=== PATIENT | female | born 1945 | race Caucasian/White ===

== ENCOUNTER → 2019-05-25 | Outpatient (CLI) | payer BC, MEDICARE ==
--- NOTE | 2019-05-25 15:07 | REPPI ---
KUB: Two views. Tree: Kidney stone. No comparison imaging. Findings: There is an irregularly shaped 7 mm calcification projecting in the left upper quadrant of the abdomen over the upper pole left kidney consistent with intrarenal nephrolithiasis. There may be a smaller calcification adjacent. There is an anastomotic suture line visible in the right lower pelvis. There is a dextroconvex curvature in the lumbar spine. Impression: 7 mm calculus projects over the left kidney consistent with intrarenal nephrolithiasis. Electronically Signed by Alfredo Rabago MD 05/25/2019 02:58 P
== END ==
LOC: M PLAIMG 13:41
PROVIDERS: ATTEND Nurse Practitioner Women's Health
DX: N20.0 Calculus of kidney (principal)

== ENCOUNTER → 2019-05-25 | Outpatient (REF) | payer BC ==
[2019-05-25 19:52] LABS: APPEARANCE, URINE CLOUDY (CLEAR); BACTERIA, URINE AUTO NEGATIVE (NEGATIVE); BILIRUBIN, URINE AUTO NEGATIVE (NEGATIVE); BLOOD, URINE BLOOD 3+ (NEGATIVE); COLOR, URINE YELLOW (YELLOW); GLUCOSE, URINE (UA) AUTO 1+ mg/dL (NEGATIVE); KETONE, URINE AUTO NEGATIVE (NEGATIVE); LEUKOCYTE ESTERASE, URINE AUTO NEGATIVE (NEGATIVE); MUCUS, URINE SMALL (NEGATIVE); NITRITE, URINE AUTO NEGATIVE (NEGATIVE); PROTEIN, URINE AUTO NEGATIVE (NEGATIVE); RBC, URINE AUTO TNTC /HPF (0-3); SPECIFIC GRAVITY URINE AUTO 1.015 (1.002-1.035); SQUAMOUS EPITHELIAL CELL UR AU 0 /HPF (0-6); UROBILINOGEN, URINE AUTO 0.2 mg/dL (0.0-2.0); WBC, URINE AUTO 1 /HPF (0-3)
== END ==
LOC: M SMT 17:15
PROVIDERS: ATTEND Nurse Practitioner Women's Health
DX: R31.0 Gross hematuria (principal)

== ENCOUNTER 2019-06-18 06:24 | Day surgery (SDC) | payer BC, MEDICARE ==
[~2019-06-18] VITALS: Ht 157.5 cm; Wt 48.5 kg
[~2019-06-18 06:24] MED LIST: BUTACAP78 PO; CYAN500T8 INJ; DIPH2.5T15 PO; ESTR125TA PO; LIDOCAINE 1% MDV 20ML VIAL SQ PRN; LR 1,000 ML IV ONE; METO1TAB7 PO; PROP50TA3 PO; SERT-141 PO; TRAZ-252 PO; VITA500079 PO
[2019-06-18] MEDS ORDERED: ceFAZolin 2 GM/D5W 50 ML IV BAG (J0690 PER 500MG) As Ordered ONE (07:05)
[2019-06-18] MEDS ORDERED: ceFAZolin SOD 2 GM in IV 1 EA IV ONE (07:15)
[2019-06-18] MEDS ORDERED: MIDAZOLAM INJ 2 MG/2 ML VIAL (J2250) As Ordered ONE (07:18)
[2019-06-18] MEDS ORDERED: fentaNYL 100 MCG/2 ML INJECTION (J3010) As Ordered ONE (07:18)
[2019-06-18] MEDS ORDERED: PROPOFOL 200 MG/20 ML VIAL As Ordered ONE (07:18)
[2019-06-18] MEDS ORDERED: LIDOCAINE 2% INJ 100 MG/5 ML SDV (FOR ANES.) As Ordered ONE (07:18)
[2019-06-18 07:28] LABS: INR 1.02; PROTHROMBIN TIME 13.1 SECONDS (11.8-14.0)
[2019-06-18] MEDS ORDERED: ONDANSETRON 4MG/2ML VIAL (J2405) As Ordered ONE (08:01)
--- NOTE | 2019-06-18 08:06 | REP ---
KUB: Single view. History: Kidney stone. Comparison KUB study May 25, 2019. Findings: There is a 7 mm irregular calculus projecting over the central portion of the left kidney unchanged. There are two calcific opacities projecting over the right renal silhouette. The right kidney appears somewhat ptotic. There are sutures in the pelvis on the right. There is a dextroconvex lumbar scoliotic curve. Bowel gas pattern is normal. Impression: Bilateral intrarenal nephrolithiasis. Electronically Signed by Alfredo Rabago MD 06/18/2019 07:57 A
[2019-06-18 09:15] VITALS: BP 141/67
[2019-06-18] MEDS ORDERED: LR 1,000 ML IV SCH (09:15)
[2019-06-18] MEDS ORDERED: ONDANSETRON 4MG/2ML VIAL (J2405) IV PRN (09:15)
[2019-06-18] MEDS ORDERED: oxyCODONE 5MG TAB PO PRN (09:15)
--- NOTE | 2019-06-20 00:29 | RO ---
DATE OF PROCEDURE: 06/18/2019 PREPROCEDURE DIAGNOSIS: Bilateral kidney stones. POSTPROCEDURE DIAGNOSIS: Bilateral kidney stones. PROCEDURE: Bilateral extracorporeal shock wave lithotripsy. SURGEON: Dr. Nicholas Rome CREDIT RISK ANALYTICS MANAGER: None. ANESTHESIA: Monitored anesthesia care (MAC). OPERATIVE INDICATIONS: This is a 74-year-old female with bilateral nonobstructing kidney stones measuring up to about 6 mm in size. She was brought to the operating room today for the above listed procedure. DESCRIPTION OF PROCEDURE: The patient was brought to the operating room and MAC anesthesia was administered. Prophylactic antibiotics were infused. She was then placed in the supine position first for a left-sided extracorporeal shock wave lithotripsy first. Fluoroscopy was utilized to monitor stone position and fragmentation throughout the procedure. Shock waves were then delivered to the left-sided kidney stone ungated. The stone did appear to fragment well. After 2000 shocks, the procedure on the left was concluded, and then she was repositioned for a right-sided extracorporeal shock wave lithotripsy. Once again fluoroscopy was utilized to monitor stone position and fragmentation. After 2500 shocks, the stone did appear to fragment well and this marked the conclusion of the procedure. The patient was then awakened from anesthesia and transported to the recovery room in stable condition. Estimated blood loss: 0 mL. Complications: None. Specimens: None. PLAN: The patient will followup in the clinic in a few weeks with imaging prior to assess for residual stone burden. ED
== END 2019-06-18 09:26 | disposition home or self-care (01) ==
LOC: M SDC 06:24
PROVIDERS: ATTEND Urology
DX: N20.0 Calculus of kidney (principal); R31.0 Gross hematuria; E05.90 Thyrotoxicosis, unspecified without thyrotoxic crisis or storm; F32.9 Major depressive disorder, single episode, unspecified; K91.2 Postsurgical malabsorption, not elsewhere classified; I10 Essential (primary) hypertension; R51 Headache; Z92.3 Personal history of irradiation; Z79.899 Other long term (current) drug therapy; Z85.41 Personal history of malignant neoplasm of cervix uteri; Z87.891 Personal history of nicotine dependence
CPT/HCPCS: 36415; 50590; 74018; 85610; J0690; J2250; J2405; J3010

== ENCOUNTER → 2019-07-09 | Outpatient (REF) | payer BC, MEDICARE ==
[~2019-07-09] MED LIST changes: -LIDOCAINE 1% MDV 20ML VIAL SQ PRN; -LR 1,000 ML IV ONE
[2019-07-09 14:04] LABS: APPEARANCE, URINE HAZY (CLEAR); BACTERIA, URINE AUTO 1+ (NEGATIVE); BILIRUBIN, URINE AUTO NEGATIVE (NEGATIVE); BLOOD, URINE BLOOD NEGATIVE (NEGATIVE); CALCIUM OXALATE CRYSTALS SMALL; COLOR, URINE YELLOW (YELLOW); GLUCOSE, URINE (UA) AUTO 1+ mg/dL (NEGATIVE); KETONE, URINE AUTO NEGATIVE (NEGATIVE); LEUKOCYTE ESTERASE, URINE AUTO NEGATIVE (NEGATIVE); MUCUS, URINE SMALL (NEGATIVE); NITRITE, URINE AUTO NEGATIVE (NEGATIVE); PROTEIN, URINE AUTO NEGATIVE (NEGATIVE); RBC, URINE AUTO 10 /HPF (0-3); SPECIFIC GRAVITY URINE AUTO 1.019 (1.002-1.035); SQUAMOUS EPITHELIAL CELL UR AU 0 /HPF (0-6); UROBILINOGEN, URINE AUTO 0.2 mg/dL (0.0-2.0); WBC, URINE AUTO 23 /HPF (0-3)
[2019-07-20 14:07] LABS: Ca Ox Monohydrate 95 % (.)
== END ==
LOC: M SMT 12:58
PROVIDERS: ATTEND Nurse Practitioner Women's Health
DX: N20.0 Calculus of kidney (principal)